=== PATIENT | female | born 1955 | race African-American/Black ===

== ENCOUNTER 2025-08-11 17:30 | Emergency (ER) | payer MEDICARE, MEDICAID ==
[~2025-08-11] VITALS: Ht 172.7 cm; Wt 118.0 kg
[2025-08-11 17:33] VITALS: TEMP 99.3; O2SAT 100
[2025-08-11 18:28] LABS: BASOPHILS % 0.4 % (0.0-2.0); EOSINOPHILS % 0.5 % (0.0-5.0); HEMATOCRIT. 34.2 % (36.0-48.0); HEMOGLOBIN. 11.1 g/dL (12.0-16.0); LYMPHOCYTES % 20.4 % (20.0-50.0); MEAN PLATELET VOLUME 10.0 fl (7.4-10.4); MONOCYTES % 12.4 % (2.0-8.0); NEUTROPHILS % 66.3 % (40.0-76.0); PLATELET 161 x1000/uL (130-400); RED BLOOD CELL COUNT 3.79 mill/uL (4.2-5.4); RED CELL DISTRIBUTION WIDTH 15.0 % (11.6-14.6)
[2025-08-11 18:39] LABS: CREATININE 1.2 mg/dL (0.6-1.0); INR 1.0; UREA NITROGEN BLOOD 12 mg/dL (9-23)
[2025-08-11 18:40] LABS: TROPONIN I HIGH SENSITIVITY 31 ng/L (3.0-34)
[2025-08-11 18:41] LABS: ASPARTATE AMINOTRANSFERASE 20 IU/L (<34); BILIRUBIN DIRECT < 0.1 mg/dL (<=3.0); BILIRUBIN TOTAL 0.2 mg/dL (0.1-1.0); PROTEIN TOTAL 6.9 g/dL (6.0-8.3)
[2025-08-11] MEDS: ALBUTEROL (0.083%) 2.5MG/3ML NEB HHN ONE (19:34)
[2025-08-11 19:35] VITALS: PULSE 75; RESP 20
[2025-08-11 20:34] LABS: TROPONIN I HIGH SENSITIVITY 28 ng/L (3.0-34)
[2025-08-11] MEDS ORDERED: ALBU18HF2 IH (21:17)
[2025-08-11 21:46] VITALS: BP 118/85; PULSE 100; RESP 18; O2SAT 95
== END 2025-08-11 21:40 | disposition home or self-care (01) ==
LOC: ER 17:30
DX: B34.9 Viral infection, unspecified (principal); I10 Essential (primary) hypertension; Z87.01 Personal history of pneumonia (recurrent)
CPT/HCPCS: 36415; 71045; 80048; 80076; 83880; 84484; 85025; 94070; 94640; 99285